=== PATIENT | female | born 1980 | race Caucasian/White ===

== ENCOUNTER 2016-09-03 17:52 | Emergency (ER) | payer BC ==
[~2016-09-03] VITALS: Ht 152.4 cm; Wt 88.3 kg
[~2016-09-03 17:52] MED LIST: IBUPROFEN800 MG PO
[2016-09-03 18:27] LABS: HEMATOCRIT 38.8 % (36.0-46.0); MCH 29.6 PG (29.0-34.0); MCHC 33.8 G/DL (30.0-36.0); MCV 87.6 FL (83-99); MEAN PLAT.VOLUME 10.6 uM^3 (9.5-12.4); PLATELET COUNT 241 K/uL (156-360); RBC DIS.WIDTH-CV 14.8 % (11.8-14.6); RBC DIS.WIDTH-SD 47.9 % (39-53); RED BLOOD COUNT 4.43 M/uL (3.80-5.20); WHITE BLOOD COUNT 11.4 K/uL (4.1-10.2)
[2016-09-03 18:35] LABS: CHLORIDE 106 mEq/L (99-109); POTASSIUM 3.7 mEq/L (3.7-5.4); SODIUM 137 mEq/L (136-147)
[2016-09-03 18:37] LABS: GLUCOSE 94 mg/dL (70-99)
[2016-09-03 18:38] LABS: ANION GAP 10 MEQ/L (2-14)
[2016-09-03 18:39] LABS: TOTAL BILIRUBIN 0.3 mg/dL (0.0-1.0)
[2016-09-03 18:40] LABS: ALKALINE PHOSPHATASE 105 IU/L (3-129)
[2016-09-03 18:41] LABS: GFR ESTIMATE (CALCULATED) > 59 mL/min/
[2016-09-03 18:42] LABS: UREA NITROGEN (BUN) 9 mg/dL (9-23)
[2016-09-03 19:03] LABS: ADD MIUA? YES; BILIRUBIN NEGATIVE; BLOOD NEGATIVE; COLOR YELLOW ((YELLOW)); GLUCOSE (STRIP) NEGATIVE; KETONES NEGATIVE; LEUKOCYTES NEGATIVE; NITRITE NEGATIVE; PROTEIN (STRIP) NEGATIVE; SPECIFIC GRAVITY 1.017 (1.000-1.030); UROBILINOGEN 0.2 MG/DL (0.2-1.0)
[2016-09-03 19:07] LABS: QUANTITATIVE HCG 16763.2 MIU/ML
[2016-09-03 19:29] LABS: AMORPHOUS URATES CRYSTALS 3+; BACTERIA NONE SEEN /HPF; CASTS NONE SEEN /LPF; CRYSTALS PRESENT; EPITHELIAL CELLS 1+ /HPF; MUCUS NONE SEEN /LPF; RED BLOOD CELLS NONE SEEN /HPF (0-5); UCUL ADDED? NO; WHITE BLOOD CELLS NONE SEEN /HPF (0-5)
[2016-09-03] MEDS ORDERED: FLINTSTONES1 EACH PO (19:46)
[2016-09-03 20:51] VITALS: BP 112/65
== END 2016-09-03 20:52 | disposition home or self-care (01) ==
LOC: EME 17:52
DX: O99.89 Other specified diseases and conditions complicating pregnancy, childbirth and the puerperium (principal); R10.11 Right upper quadrant pain; Z3A.19 19 weeks gestation of pregnancy; Z88.6 Allergy status to analgesic agent
CPT/HCPCS: 80053; 81003; 84702; 85027; 99281; 99284

== ENCOUNTER 2017-01-22 07:43 | Inpatient (IN) | payer BC ==
[2017-01-22] VITALS (22 sets, daily range): BP systolic 111–166; BP diastolic 53–85
[~2017-01-22] VITALS: Ht 152.4 cm; Wt 95.5 kg
[~2017-01-22 07:43] MED LIST changes: +FLINTSTONES1 EACH PO
[2017-01-22] MEDS ORDERED: FLINTSTONES M300 MCG PO (08:26)
[2017-01-22 09:05] LABS: EOSINOPHIL (%) 0.5 % (0-5); EOSINOPHIL COUNT 0.1 K/uL (0-0.3); HEMATOCRIT 42.3 % (36.0-46.0); IMMATURE GRANULOCYTE (%) 1.5 % (0.0-0.7); IMMATURE GRANULOCYTE COUNT 0.2 K/uL; INSTRUMENT ABS NEUTROPHIL CT 7.5 K/uL; LYMPHOCYTE COUNT 2.4 K/uL (1.0-2.8); MCH 28.2 PG (29.0-34.0); MCHC 32.6 G/DL (30.0-36.0); MCV 86.3 FL (83-99); MEAN PLAT.VOLUME 12.3 uM^3 (9.5-12.4); MONOCYTE (%) 4.7 % (3-12); MONOCYTE COUNT 0.5 K/uL (0-0.8); NEUTROPHIL (%) 70.1 % (45-76); NEUTROPHIL COUNT 7.5 K/uL (1.8-6.4); PLATELET COUNT 199 K/uL (156-360); RBC DIS.WIDTH-CV 13.8 % (11.8-14.6); RBC DIS.WIDTH-SD 43.2 % (39-53); WHITE BLOOD COUNT 10.6 K/uL (4.1-10.2)
[2017-01-23 07:11] LABS: EOSINOPHIL (%) 0.7 % (0-5); EOSINOPHIL COUNT 0.1 K/uL (0-0.3); HEMATOCRIT 37.1 % (36.0-46.0); IMMATURE GRANULOCYTE (%) 1.2 % (0.0-0.7); IMMATURE GRANULOCYTE COUNT 0.2 K/uL; INSTRUMENT ABS NEUTROPHIL CT 8.5 K/uL; LYMPHOCYTE COUNT 3.1 K/uL (1.0-2.8); MCH 29.1 PG (29.0-34.0); MCHC 33.4 G/DL (30.0-36.0); MCV 87.1 FL (83-99); MEAN PLAT.VOLUME 12.4 uM^3 (9.5-12.4); MONOCYTE (%) 4.5 % (3-12); MONOCYTE COUNT 0.6 K/uL (0-0.8); NEUTROPHIL (%) 68.3 % (45-76); NEUTROPHIL COUNT 8.5 K/uL (1.8-6.4); PLATELET COUNT 168 K/uL (156-360); RBC DIS.WIDTH-CV 14.1 % (11.8-14.6); RBC DIS.WIDTH-SD 44.6 % (39-53); RED BLOOD COUNT 4.26 M/uL (3.80-5.20); WHITE BLOOD COUNT 12.5 K/uL (4.1-10.2)
[2017-01-23 07:12] VITALS: BP 123/77
[2017-01-23 15:40] VITALS: BP 118/67
== END 2017-01-23 18:40 | disposition home or self-care (01) | DRG 775 ==
LOC: LDRP-OP → 2WEST 07:44 → LDRP-OP 14:28 → 2WEST 15:40 → LDRP-OP 03-11 10:55
PROVIDERS: Advanced Practice Midwife
DX: O99.214 Obesity complicating childbirth (principal); Z3A.39 39 weeks gestation of pregnancy; Z37.0 Single live birth; O70.0 First degree perineal laceration during delivery; E66.9 Obesity, unspecified; Z68.41 Body mass index [BMI] 40.0-44.9, adult; O22.43 Hemorrhoids in pregnancy, third trimester; O87.4 Varicose veins of lower extremity in the puerperium
CPT/HCPCS: 85025; C1755; J3010; J7120